=== PATIENT | male | born 1970 | race Caucasian/White ===

== ENCOUNTER 2016-12-09 14:48 | Inpatient (IN) | payer OTHER ==
[2016-12-09 17:25] VITALS: BMI 28.6
--- NOTE | 2016-12-09 18:41 | HP ---
CIWA Score - CIWA Score Nausea/Vomitin-Mild Nausea/No Vomiting Muscle Tremors: 4-Moderate,w/Arms Extend Anxiety: 4-Mod. Anxious/Guarded Agitation: 4-Moderately Restless Paroxysmal Sweats: 1-Minimal Palms Moist Orientation: 1-Uncertain about Date Tacttile Disturbances: 0-None Auditory Disturbances: 0-None Visual Disturbances: 0-None Headache: 1-Very Mild CIWA-Ar Total Score: 16 Admission ROS BHS - HPI Chief Complaint: withdrawal sx Allergies/Adverse Reactions: Allergies Allergy/AdvReac Type Severity Reaction Status Date / Time No Known Allergies Allergy Verified 12/09/16 18:37 History of Present Illness: 46 years old male with long history of alcohol nicotine dependence has hypertension and schizophrenia is admitted to detox Exam Limitations: No Limitations - Ebola screening Have you traveled outside of the country in the last 21 days: No Have you had contact with anyone from an Ebola affected area: No Have you been sick,other than usual withdrawal symptoms: No Do you have a fever: No - Review of Systems Constitutional: Chills, Changes in sleep, Weight Stable EENT: reports: Blurred Vision (eye glasses) Respiratory: reports: No Symptoms reported Cardiac: reports: No Symptoms Reported GI: reports: Nausea, Poor Fluid Intake, Abdominal cramping : reports: Other (kidney stone 2014) Musculoskeletal: reports: Back Pain (arthritis) Integumentary: reports: No Symptoms Reported Neuro: reports: Tremors Endocrine: reports: No Symptoms Reported Hematology: reports: No Symptoms Reported Psychiatric: reports: Judgement Intact, Anxious, Depressed Other Systems: Reviewed and Negative Patient History - Patient Medical History Hx Anemia: No Hx Asthma: No Hx Chronic Obstructive Pulmonary Disease (COPD): No Hx Cancer: No Hx Cardiac Disorders: No Hx Congestive Heart Failure: No Hx Hypertension: Yes Hx Hypercholesterolemia: No Hx Pacemaker: No HX Cerebrovascular Accident: No Hx Seizures: No Hx Dementia: No Hx Diabetes: No Hx Gastrointestinal Disorders: No Hx Liver Disease: No Hx Genitourinary Disorders: No Hx Sexually Transmitted Disorders: No Hx Renal Disease (ESRD): No Hx Thyroid Disease: No Hx Human Immunodeficiency Virus (HIV): No Hx Hepatitis C: Yes Hx Depression: No Hx Suicide Attempt: No Hx Bipolar Disorder: No Hx Schizophrenia: Yes - Patient Surgical History Past Surgical History: Yes Hx Neurologic Surgery: No Hx Cataract Extraction: No Hx Cardiac Surgery: No Hx Lung Surgery: No Hx Breast Surgery: No Hx Breast Biopsy: No Hx Abdominal Surgery: No Hx Appendectomy: No Hx Cholecystectomy: No Hx Genitourinary Surgery: Yes (2014 kidney stone) Hx Orthopedic Surgery: No Anesthesia Reaction: No - PPD History Previous Implant?: Yes Documented Results: Positive w/o proof Implanted On Prior [facility] Admission?: No PPD to be Administered?: No - Smoking Cessation Smoking history: Current every day smoker Have you smoked in the past 12 months: Yes Aproximately how many cigarettes per day: 5 Cigars Per Day: 0 Hx Chewing Tobacco Use: No Initiated information on smoking cessation: Yes 'Breaking Loose' booklet given: 12/09/16 - Substance & Tx. History Hx Alcohol Use: Yes Hx Substance Use: Yes Substance Use Type: Alcohol, Cocaine, Tranquilizers Hx Substance Use Treatment: No - Substances Abused Alcohol Route: Oral Frequency: Daily Amount used: 2pints volka Age of first use: 13 Date of Last Use: 12/09/16 Family Disease History - Family Disease History Family Disease History: Diabetes: Brother (), Heart Disease: Brother, Sister, [place]: Mother (), Other: Father, Mother, Brother, Sister Admission Physical Exam BHS - Vital Signs Vital Signs: Vital Signs - 24 hr 12/09/16 17:23 Temperature 98.3 F Pulse Rate 75 Respiratory 20 Rate Blood Pressure 132/75 - Physical General Appearance: Yes: Nourished, Appropriately Dressed, Mild Distress, Moderate Distress, Alcohol on Breath, Tremorous, Irritable, Sweating, Anxious HEENTM: Yes: Hearing grossly Normal, Normal ENT Inspection, Normocephalic, Normal Voice Respiratory: Yes: Chest Non-Tender, Lungs Clear, Normal Breath Sounds, No Respiratory Distress, No Accessory Muscle Use Neck: Yes: Supple, Trachea in good position Breast: Yes: Breasts Symetrical Cardiology: Yes: Regular Rhythm, Regular Rate, S1, S2 Abdominal: Yes: Normal Bowel Sounds, Non Tender, Soft Genitourinary: Yes: Within Normal Limits Back: Yes: Normal Inspection Musculoskeletal: Yes: full range of Motion, Gait Steady, Back pain, Muscle Pain (left knee) Extremities: Yes: Normal Inspection, Normal Range of Motion, Non-Tender, Tremors Neurological: Yes: Alert, Motor Strength 5/5, Normal Mood/Affect, Normal Response Integumentary: Yes: Normal Color, Warm Lymphatic: Yes: Within Normal Limits - Diagnostic (1) Alcohol dependence with uncomplicated withdrawal Current Visit: Yes Status: Acute (2) Cocaine dependence, uncomplicated Current Visit: Yes Status: Chronic (3) Sedative, hypnotic or anxiolytic dependence with withdrawal, uncomplicated Current Visit: Yes Status: Chronic (4) Hypertension Current Visit: Yes Status: Chronic Qualifiers: Hypertension type: essential hypertension Qualified Code(s): I10 - Essential (primary) hypertension (5) Nicotine dependence Current Visit: Yes Status: Acute Qualifiers: Nicotine product type: cigarettes Substance use status: in withdrawal Qualified Code(s): F17.213 - Nicotine dependence, cigarettes, with withdrawal (6) Hepatitis C Current Visit: Yes Status: Chronic Qualifiers: Viral hepatitis chronicity: carrier Qualified Code(s): B18.2 - Chronic viral hepatitis C (7) Positive PPD, treated Current Visit: Yes Status: Resolved Cleared for Admission S - Detox or Rehab [facility] Level of Care: Medically Managed Detox Regimen/Protocol: Librium S Breath Alcohol Content Breath Alcohol Content: 0.017 Urine Drug Screen - Results Drug Screen Negative: No Urine Drug Screen Results: INNA-Cocaine, BZO-Benzodiazepines
[2016-12-09] MEDS ORDERED: guaiFENesin/D-METHORPHAN HB 10 ML UNIT-DOSE CUPS PO PRN (18:44)
[2016-12-09] MEDS ORDERED: NICOTINE POLACRILEX 2 MG GUM BC PRN (18:44)
[2016-12-09] MEDS ORDERED: MAGNESIUM HYDROX 2400MG/30ML ORAL SUSPENSION 30 ML CUP PO PRN (18:44)
[2016-12-09] MEDS ORDERED: MAGNESIUM CITRATE 300 ML BOTTLE PO PRN (18:44)
[2016-12-09] MEDS ORDERED: MAG HYDROX/AL HYDROX/SIMETH 30 ML UNIT-DOSE CUP PO PRN (18:44)
[2016-12-09] MEDS ORDERED: hydrOXYzine PAMOATE 50 MG CAPSULE (FP) PO PRN (18:44)
[2016-12-09] MEDS ORDERED: ACETAMINOPHEN 325 MG TABLET (FP) PO PRN (18:44)
[2016-12-09] MEDS ORDERED: NICOTINE 14 MG/24 HOURS TOPICAL PATCH TD PRN (18:44)
[2016-12-09] MEDS ORDERED: chlordiazePOXIDE HCL 25 MG CAPSULE PO PRN (18:44)
[2016-12-09] MEDS ORDERED: MENTHOL/PHENOL 1 EACH UD MM PRN (18:44)
[2016-12-09] MEDS ORDERED: IBUPROFEN 400 MG TABLET (FP) PO PRN (18:44)
[2016-12-09] MEDS ORDERED: P-EPHED 60MG/TRIPROLIDI 2.5MG TABLET PO PRN (18:44)
[2016-12-09] MEDS ORDERED: LOPERAMIDE HCL 2 MG CAPSULE PO PRN (18:44)
[2016-12-09] MEDS: THIAMINE HCL 100 MG TABLET (FP) PO SCH (21:18)
[2016-12-09] MEDS: HYDROCHLOROTHIAZIDE 25 MG TABLET (FP) PO SCH (21:19)
[2016-12-09] MEDS: diphenhydrAMINE HCL 50 MG CAPSULE PO PRN (22:13)
[2016-12-09] MEDS: chlordiazePOXIDE HCL 25 MG CAPSULE PO SCH (22:13)
[2016-12-09 23:16] LABS: URINE APPEARANCE CLEAR; URINE BILIRUBIN NEGATIVE (NEGATIVE); URINE BLOOD NEGATIVE (NEGATIVE); URINE COLOR STRAW; URINE GLUCOSE (UA) NEGATIVE (NEGATIVE); URINE KETONE NEGATIVE (NEGATIVE); URINE LEUK ESTERASE NEGATIVE (NEGATIVE); URINE NITRITE NEGATIVE (NEGATIVE); URINE PROTEIN NEGATIVE (NEGATIVE); URINE UROBILINOGEN NEGATIVE mg/dL (0.2-1.0)
[2016-12-10] MEDS: chlordiazePOXIDE HCL 25 MG CAPSULE PO SCH ×4 (05:43→22:08)
--- NOTE | 2016-12-10 09:01 | CONSULT ---
[facility] Psychiatric Consult - Data Date of interview: 12/10/16 Admission source: [facility] Identifying data: This is 46 years old male with psychiatoirc hospitalization history, intoxzicated with: Alcohol, Nicotine, Cocaine and Benzodiazepins Substance Abuse History: - Smoking Cessation. Smoking history: Current every day smoker. Have you smoked in the past 12 months: Yes. Aproximately how many cigarettes per day: 5. Cigars Per Day: 0. Hx Chewing Tobacco Use: No. Initiated information on smoking cessation: Yes. 'Breaking Loose' booklet given : 12/09/16. - Substance & Tx. History. Hx Alcohol Use: Yes. Hx Substance Use : Yes. Substance Use Type: Alcohol, Cocaine, Tranquilizers. Hx Substance Use Treatment: No. - Substances Abused. Alcohol. Route: Oral. Frequency: Daily. Amount used: 2pints volka. Age of first use: 13. Date of Last Use: Medical History: HepC+, HTN, PPD+ history, Psychiatric History: Reports unclear psychiatric hospitalization back on more then 10 years ago, reports taking Risprdal in the past 2mg po qhs, reports no medications prior to admission, reports history of Schizoaffective disorder, unclear as well Physical/Sexual Abuse/Trauma History: Denies Additional Comment: Observation. Detox Unit Care Protocol Mental Status Exam - Mental Status Exam Alert and Oriented to: Person Cognitive Function: Fair Patient Appearance: Well Groomed Mood: Apprehensive Affect: Mood Congruent Patient Behavior: Cooperative Speech Pattern: Appropriate Voice Loudness: Normal Thought Process: Goal Oriented Thought Disorder: Being Controlled Hallucinations: Denies Suicidal Ideation: Denies Homicidal Ideation: Denies Insight/Judgement: Fair Sleep: Fair Appetite: Fair Muscle strength/Tone: Normal Gait/Station: Normal Additional Comments: Observation. Detox Unit Care Protocol Psychiatric Findings - Problem List ([place] 1, 2,3) (1) Alcohol dependence with uncomplicated withdrawal Current Visit: Yes Status: Acute (2) Nicotine dependence Current Visit: Yes Status: Acute Qualifiers: Nicotine product type: cigarettes Substance use status: in withdrawal Qualified Code(s): F17.213 - Nicotine dependence, cigarettes, with withdrawal (3) Cocaine dependence, uncomplicated Current Visit: Yes Status: Chronic (4) Hypertension Current Visit: Yes Status: Chronic Qualifiers: Hypertension type: essential hypertension Qualified Code(s): I10 - Essential (primary) hypertension (5) Sedative, hypnotic or anxiolytic dependence with withdrawal, uncomplicated Current Visit: Yes Status: Chronic (6) Drug-induced mood disorder Current Visit: Yes Status: Suspected (7) Schizoaffective disorder Current Visit: Yes Status: Suspected - Initial Treatment Plan Initial Treatment Plan: Observation. Detox Unit Care Protocol
[2016-12-10] MEDS: HYDROCHLOROTHIAZIDE 25 MG TABLET (FP) PO SCH (10:15)
[2016-12-10] MEDS: PRENATAL VITAMINS W/ FOLIC ACID TABLET (FP) PO SCH (10:15)
[2016-12-10 10:19] LABS: MCH 30.1 pg (25.7-33.7); MCHC 33.7 g/dl (32.0-35.9); MEAN CELL VOLUME 89.4 fl (80-96); PLATELET COUNT 141 K/MM3 (134-434); RDW 13.6 % (11.9-15.9); WHITE BLOOD COUNT 8.6 K/mm3 (4.0-10.0)
--- NOTE | 2016-12-10 10:23 | PN ---
[facility] CIWA - CIWA Score Nausea/Vomitin-No Nausea/No Vomiting Muscle Tremors: 4-Moderate,w/Arms Extend Anxiety: 4-Mod. Anxious/Guarded Agitation: 4-Moderately Restless Paroxysmal Sweats: 1-Minimal Palms Moist Orientation: 0-Oriented Tacttile Disturbances: 3-Moderate Itch/Numb/Burn Auditory Disturbances: 0-None Visual Disturbances: 0-None Headache: 0-None Present CIWA-Ar Total Score: 16 BHS Progress Note (SOAP) Subjective: ANXIETY,SLIGHT TREMORS,SWEATS,FATIGUE. Objective: 12/10/16 10:23 Vital Signs Temperature 96.2 F L 12/10/16 09:32 Pulse Rate 70 12/10/16 09:32 Respiratory Rate 18 12/10/16 09:32 Blood Pressure 122/86 12/10/16 09:32 O2 Sat by Pulse Oximetry (%) Laboratory Last Values Urine Color Straw 12/09/16 23:11 Urine Appearance Clear 12/09/16 23:11 Urine pH 6.0 (5.0-8.0) 12/09/16 23:11 Urine Protein Negative (NEGATIVE) 12/09/16 23:11 Urine Glucose (UA) Negative (NEGATIVE) 12/09/16 23:11 Urine Ketones Negative (NEGATIVE) 12/09/16 23:11 Urine Blood Negative (NEGATIVE) 12/09/16 23:11 Urine Nitrite Negative (NEGATIVE) 12/09/16 23:11 Urine Bilirubin Negative (NEGATIVE) 12/09/16 23:11 Urine Urobilinogen Negative mg/dL (0.2-1.0) 12/09/16 23:11 Ur Leukocyte Esterase Negative (NEGATIVE) 12/09/16 23:11 Assessment: 12/10/16 10:23 WITHDRAWAL SX Plan: CONTINUE DETOX
[2016-12-10 10:32] LABS: ALBUMIN 3.6 g/dl (3.4-5.0); ALK PHOS 131 U/L (45-117); ANION GAP 10 (8-16); BILIRUBIN,TOTAL 0.7 mg/dL (0.2-1.0); CALCIUM 8.7 mg/dL (8.5-10.1); CO2 28 mmol/L (21-32); CREATININE 0.9 mg/dL (0.7-1.3); GLUCOSE,RANDOM 75 mg/dL (74-106); SGOT/AST 39 U/L (15-37); SGPT/ALT 56 U/L (12-78); TOT PROT 6.9 g/dl (6.4-8.2)
--- NOTE | 2016-12-10 20:01 | EKG ---
Test Reason : Blood Pressure : / mmHG Vent. Rate : 068 BPM Atrial Rate : 068 BPM P-R Int : 130 ms QRS Dur : 082 ms QT Int : 396 ms P-R-T Axes : 051 048 000 degrees QTc Int : 421 ms NORMAL SINUS RHYTHM NORMAL ECG NO PREVIOUS ECGS AVAILABLE Confirmed by PAOLA CLARK MD ([id number]) on 12/10/2016 8:00:56 PM Referred By: Jace Drew Confirmed By:PAOLA CLARK MD
[2016-12-10] MEDS: THIAMINE HCL 100 MG TABLET (FP) PO SCH (22:08)
[2016-12-10] MEDS: diphenhydrAMINE HCL 50 MG CAPSULE PO PRN (22:08)
[2016-12-10] MEDS: POTASSIUM CHLORIDE ORAL LIQUID 20 MEQ/15 ML PO SCH (22:08)
[2016-12-11] MEDS: chlordiazePOXIDE HCL 25 MG CAPSULE PO SCH ×2 (05:37→10:14)
[2016-12-11] MEDS: POTASSIUM CHLORIDE ORAL LIQUID 20 MEQ/15 ML PO SCH (10:14)
[2016-12-11] MEDS: HYDROCHLOROTHIAZIDE 25 MG TABLET (FP) PO SCH (10:14)
[2016-12-11] MEDS: PRENATAL VITAMINS W/ FOLIC ACID TABLET (FP) PO SCH (10:14)
--- NOTE | 2016-12-11 10:41 | PN ---
[facility] CIWA - CIWA Score Nausea/Vomitin-No Nausea/No Vomiting Muscle Tremors: 4-Moderate,w/Arms Extend Anxiety: 4-Mod. Anxious/Guarded Agitation: 4-Moderately Restless Paroxysmal Sweats: 1-Minimal Palms Moist Orientation: 0-Oriented Tacttile Disturbances: 3-Moderate Itch/Numb/Burn Auditory Disturbances: 0-None Visual Disturbances: 0-None Headache: 0-None Present CIWA-Ar Total Score: 16 BHS Progress Note (SOAP) Subjective: ANXIETY,SWEATS,SLIGHT TREMORS. Objective: 12/11/16 10:40 Vital Signs Temperature 96.4 F L 12/11/16 09:40 Pulse Rate 71 12/11/16 09:40 Respiratory Rate 18 12/11/16 09:40 Blood Pressure 141/93 12/11/16 09:40 O2 Sat by Pulse Oximetry (%) Laboratory Last Values WBC 8.6 K/mm3 (4.0-10.0) 12/10/16 07:00 RBC 5.29 M/mm3 (4.00-5.60) 12/10/16 07:00 Hgb 15.9 GM/dL (11.7-16.9) 12/10/16 07:00 Hct 47.3 % (35.4-49) 12/10/16 07:00 MCV 89.4 fl (80-96) 12/10/16 07:00 MCH 30.1 pg (25.7-33.7) 12/10/16 07:00 MCHC 33.7 g/dl (32.0-35.9) 12/10/16 07:00 RDW 13.6 % (11.9-15.9) 12/10/16 07:00 Plt Count 141 K/MM3 (134-434) 12/10/16 07:00 MPV 11.0 fl (7.5-11.1) 12/10/16 07:00 Sodium 141 mmol/L (136-145) 12/10/16 07:00 Potassium 3.4 mmol/L (3.5-5.1) L 12/10/16 07:00 Chloride 103 mmol/L (98-107) 12/10/16 07:00 Carbon Dioxide 28 mmol/L (21-32) 12/10/16 07:00 Anion Gap 10 (8-16) 12/10/16 07:00 BUN 12 mg/dL (7-18) 12/10/16 07:00 Creatinine 0.9 mg/dL (0.7-1.3) 12/10/16 07:00 Creat Clearance w eGFR > 60 (>60) 12/10/16 07:00 Random Glucose 75 mg/dL (74-106) 12/10/16 07:00 Calcium 8.7 mg/dL (8.5-10.1) 12/10/16 07:00 Total Bilirubin 0.7 mg/dL (0.2-1.0) 12/10/16 07:00 AST 39 U/L (15-37) H 12/10/16 07:00 ALT 56 U/L (12-78) 12/10/16 07:00 Alkaline Phosphatase 131 U/L (45-117) H 12/10/16 07:00 Total Protein 6.9 g/dl (6.4-8.2) 12/10/16 07:00 Albumin 3.6 g/dl (3.4-5.0) 12/10/16 07:00 Urine Color Straw 12/09/16 23:11 Urine Appearance Clear 12/09/16 23:11 Urine pH 6.0 (5.0-8.0) 12/09/16 23:11 Ur Specific [place] <= 1.005 (1.005-1.025) 12/09/16 23:11 Urine Protein Negative (NEGATIVE) 12/09/16 23:11 Urine Glucose (UA) Negative (NEGATIVE) 12/09/16 23:11 Urine Ketones Negative (NEGATIVE) 12/09/16 23:11 Urine Blood Negative (NEGATIVE) 12/09/16 23:11 Urine Nitrite Negative (NEGATIVE) 12/09/16 23:11 Urine Bilirubin Negative (NEGATIVE) 12/09/16 23:11 Urine Urobilinogen Negative mg/dL (0.2-1.0) 12/09/16 23:11 Ur Leukocyte Esterase Negative (NEGATIVE) 12/09/16 23:11 RPR Titer Nonreactive (NONREACTIVE) 12/10/16 07:00 Assessment: 12/11/16 10:41 WITHDRAWAL SX Plan: CONTINUE DETOX
[2016-12-11 14:31] VITALS: BP 139/86; PULSE 77; TEMP 97.5
[2016-12-11] MEDS ORDERED: chlordiazePOXIDE 5 MG CAPSULE PO SCH (23:00)
[2016-12-12] MEDS ORDERED: chlordiazePOXIDE HCL 10 MG CAPSULE PO SCH (23:00)
== END 2016-12-11 15:05 | disposition left against medical advice (07) | DRG 770 ==
LOC: YASAS 14:48 → Y3N 19:26
PROVIDERS: ADMIT Internal Medicine; ATTEND Internal Medicine
PROC: HZ2ZZZZ Detoxification Services for Substance Abuse Treatment (ICD-10-PCS; principal; 2016-12-09)
DX: F13.230 Sedative, hypnotic or anxiolytic dependence with withdrawal, uncomplicated (principal); F10.230 Alcohol dependence with withdrawal, uncomplicated; F14.20 Cocaine dependence, uncomplicated; F17.213 Nicotine dependence, cigarettes, with withdrawal; F25.9 Schizoaffective disorder, unspecified; F19.24 Other psychoactive substance dependence with psychoactive substance-induced mood disorder; I10 Essential (primary) hypertension; B18.2 Chronic viral hepatitis C; R76.11 Nonspecific reaction to tuberculin skin test without active tuberculosis
CPT/HCPCS: 36415; 71020-TC; 80053; 81003; 85027; 86593; 93005; 93010